=== PATIENT | female | born 1960 | race Caucasian/White ===

== ENCOUNTER → 2021-08-25 12:02 | Outpatient (BNVA) | payer BC, SELFPAY | PROVIDERS: Visit Provider Internal Medicine | DX: M25.50 Pain in unspecified joint (principal); M79.10 Myalgia, unspecified site | CPT/HCPCS: 36415; 72202; 73120; 82550; 84100; 85651; 86140; 86160; 86162; 86200; 86235; 86255; 86376; 86704; 86803; 87340 ==

== ENCOUNTER → 2021-10-06 12:40 | Outpatient (BNVA) | payer BC, SELFPAY | PROVIDERS: PCP Internal Medicine; Visit Provider Internal Medicine | DX: M45.0 Ankylosing spondylitis of multiple sites in spine (principal); R74.8 Abnormal levels of other serum enzymes; R93.6 Abnormal findings on diagnostic imaging of limbs; G51.0 Bell's palsy | CPT/HCPCS: 80053; 82550; 82728; 83540; 85025; 85651; 86140; 86480; 86812 ==